=== PATIENT | male | born 1975 | race American Indian/Alaskan Native ===

== ENCOUNTER 2018-06-16 10:00 | Emergency (ER) | payer OTHER ==
[2018-06-16] MEDS ORDERED: TORADOL IM ONE (10:21)
--- NOTE | 2018-06-16 10:23 | Emergency Department Report ---
ED Abdominal Pain HPI - General Stated Complaint: ABDOMINAL PAIN Time Seen by Provider: 06/16/18 10:11 - History of Present Illness Initial Comments: Patient is a 43-year-old black male who is presenting with rectal and abdominal discomfort. Patient states for the past day he has felt as though he needs to have a bowel movement however is unable. Patient is still able to pass flatus. Patient states that even when he urinates he feels a pressure sensation Rectu the patient denies any fevers chills nausea vomiting at this time. Patient states pain is 8 out of 10 in severity. M. - Related Data Previous Rx's Medication Instructions Recorded Last Taken Type Docusate Sodium [Colace] 100 mg PO BID #10 capsule 06/16/18 Unknown Rx Allergies Allergy/AdvReac Type Severity Reaction Status Date / Time No Known Allergies Allergy Verified 06/16/18 10:27 ED Review of Systems ROS: Stated complaint: ABDOMINAL PAIN Other details as noted in HPI Comment: All other systems reviewed and negative ED Past Medical Hx - Medications Home Medications: Home Medications Medication Instructions Recorded Confirmed Last Taken Type Docusate Sodium [Colace] 100 mg PO BID #10 capsule 06/16/18 Unknown Rx ED Physical Exam - General General appearance: alert, anxious (pacing in the room states it is difficult for him to sit still) - Head Head exam: Present: atraumatic, normocephalic - Eye Eye exam: Present: normal appearance - ENT ENT exam: Present: mucous membranes moist - Neck Neck exam: Present: normal inspection - Respiratory Respiratory exam: Present: normal lung sounds bilaterally. Absent: respiratory distress - Cardiovascular Cardiovascular Exam: Present: regular rate, normal rhythm. Absent: systolic murmur, diastolic murmur, rubs, gallop - GI/Abdominal GI/Abdominal exam: Present: soft, distended, normal bowel sounds. Absent: tenderness, guarding, rebound - Rectal Rectal exam: Present: deferred - Extremities Exam Extremities exam: Present: normal inspection - Back Exam Back exam: Present: normal inspection - Neurological Exam Neurological exam: Present: alert, oriented X3 - Psychiatric Psychiatric exam: Present: normal affect, normal mood - Skin Skin exam: Present: warm, dry, intact, normal color. Absent: rash ED Course Vital Signs 06/16/18 06/16/18 10:06 10:27 Temperature 97.7 F Pulse Rate 66 Respiratory 18 16 Rate Blood Pressure 156/112 O2 Sat by Pulse 100 Oximetry ED Medical Decision Making - Radiology Data Ordering Physician: JUANJOSE MADDOX MD Date of Service: 06/16/18 Procedure(s): XR abd series w cxr 1V Accession Number(s): [id number] cc: JUANJOSE MADDOX MD Fluoro Time In Minutes: FINAL REPORT EXAM: XR ABD SERIES W CXR 1V HISTORY: abd pain TECHNIQUE: Acute abdominal series including frontal chest and two view abdomen PRIORS: None. FINDINGS: There is no cardiomegaly, vascular congestion, infiltrate or pleural effusion. There is no pneumothorax seen. There is no free air. The bowel gas pattern is nonspecific and nonobstructive. There is air and stool normal caliber colon. There is gas scattered in nondilated small bowel. Pelvic calcifications are likely phleboliths. IMPRESSION: Nonspecific, nonobstructive abdomen. Unremarkable chest radiograph. Transcribed By: ANGELA Dictated By: CHANG ZAPATA MD Electronically Authenticated By: CHANG ZAPATA MD Signed Date/Time: 06/16/18 1130 - Medical Decision Making Patient had a large bowel movement here in the emergency Department and states he feels dramatically better. Patient states normally in the mornings he is able to go to bathroom very freely however he was unable to have pain this morning. The patient be discharged home at this time. Patient's stool softener. Critical care attestation.: If time is entered above; I have spent that time in minutes in the direct care of this critically ill patient, excluding procedure time. ED Disposition Clinical Impression: Constipation Qualifiers: Constipation type: slow transit constipation Qualified Code(s): K59.01 - Slow transit constipation Disposition: DC- TO HOME OR SELFCARE Is pt being admited?: No Does the pt Need Aspirin: No Condition: Stable Instructions: Constipation (ED), High Fiber Diet (ED) Prescriptions: Docusate Sodium [Colace] 100 mg PO BID #10 capsule Referrals: PRIMARY CARE, [Primary Care Provider] - 3-5 Days Time of Disposition: 11:51
--- NOTE | 2018-06-16 11:36 | XRay Report ---
FINAL REPORT EXAM: XR ABD SERIES W CXR 1V HISTORY: abd pain TECHNIQUE: Acute abdominal series including frontal chest and two view abdomen PRIORS: None. FINDINGS: There is no cardiomegaly, vascular congestion, infiltrate or pleural effusion. There is no pneumothorax seen. There is no free air. The bowel gas pattern is nonspecific and nonobstructive. There is air and stool normal caliber colon. There is gas scattered in nondilated small bowel. Pelvic calcifications are likely phleboliths. IMPRESSION: Nonspecific, nonobstructive abdomen. Unremarkable chest radiograph.
[2018-06-16 12:12] LABS: Bilirubin,Urine NEG (Negative); Blood,Urine SM (Negative); Color,Urine Straw (Yellow); Mucus,Urine FEW /HPF; Protein,Urine <15 mg/dL mg/dL (Negative); Urobilinogen,Urine < 2.0 mg/dL (<2.0)
[2018-06-16 12:25] VITALS: BP 145/96
== END 2018-06-16 12:24 | disposition home or self-care (01) ==
LOC: ED 10:00
DX: K59.01 Slow transit constipation (principal)
CPT/HCPCS: 74022; 81001; 96372; 99284; J1885